=== PATIENT | male | born 1990 | race Caucasian/White ===

== ENCOUNTER 2020-09-27 13:14 | Emergency (ER) | payer SELFPAY ==
[~2020-09-27] VITALS: Ht 175.3 cm; Wt 71.0 kg
[2020-09-27] MEDS ORDERED: NALOXONE 2 MG/2 ML DISP.SYRIN. IV ONE (13:15)
[2020-09-27] MEDS ORDERED: ONDANSETRON PF 4 MG/2 ML VIAL. ONE (13:18)
[2020-09-27] MEDS ORDERED: IOHEXOL 350 MG/ML 100 ML VIAL. IV ONE (13:30)
[2020-09-27] MEDS ORDERED: IV NORMAL SALINE 1,000ML 1,000 ML IV ONE ×3 (13:30→14:30)
[2020-09-27] MEDS ORDERED: ONDANSETRON PF 4 MG/2 ML VIAL. IVP ONE ×2 (13:30)
[2020-09-27 13:37] LABS: BASO % 0 % (0-3); EOS % 0 % (0-3); HEMATOCRIT 60.6 % (39.0-53.0); HEMOGLOBIN 19.2 g/dL (13.0-17.5); LYMPH # 0.9 x10^3/uL (1.0-4.8); LYMPH % 5 % (24-48); MEAN CORPUSCULAR HEMOGLOBIN 33 pg (25-35); MEAN CORPUSCULAR HGB CONC 32 g/dL (31-37); MEAN CORPUSCULAR VOLUME 104 fL (79-100); MONO # 1.5 x10^3/uL (0.0-1.1); MONO % 8 % (0-9); NEUT # 16.5 x10^3uL (1.8-7.7); NEUT % 88 % (31-73); PLATELET COUNT 208 x10^3/uL (140-400); RED BLOOD COUNT 5.82 x10^6/uL (4.30-5.70); RED CELL DISTRIBUTION WIDTH 27.7 % (11.5-14.5); WHITE BLOOD COUNT 18.8 x10^3/uL (4.0-11.0)
--- NOTE | 2020-09-27 13:42 | PHYS DOC ---
Past History Past Medical History PMH limited secondary to altered mental status. Past Surgical History PSH limited secondary to altered mental status. Alcohol Use: Occasionally Drug Use: Opiates Social History Social history limited secondary to altered mental status. General Adult EDM: Chief Complaint: ALTERED MENTAL STATUS HPI: HPI: Patient is a 30-year-old male who presents to the ED per EMS who was found at home with altered mental status by his significant other. Last seen well when came to work last night at approximately 2330. Spouse reports patient has a known history of opioid abuse. Denies knowledge of ingestion of any illicit substance. Reports they have been under increased stress recently. She reports patient has been drinking recently but reports averages approximately 2 beers nightly. Denies known trauma. Reports she did hear him "rustle" during the night but just thought he was really tired. Patient was noted to be unresponsive for this afternoon and patient vomited which prompted spouse to call 911. EMS noted patient's O2 sat down to 84% on RA. NRB placed with interval improvement of O2 sats. EMS reports giving 1mg of Narcan in route without any improvement of symptoms. History of present illness limited secondary to altered mental status. Review of Systems: Review of Systems: Gastrointestinal: Vomiting Neurology: Altered mental status Review of system limited secondary to altered mental status. Current Medications: Current Meds: Current Medications Medications (Trade) Dose Ordered Sig/Johnny Start Time Stop Time Status Last Admin Dose Admin Iohexol (Omnipaque 350 Mg/ml) 100 ml 1X ONCE 09/27/20 13:30 09/27/20 13:31 UNV Naloxone HCl (Narcan) 2 mg STK-MED ONCE 09/27/20 13:15 09/27/20 13:16 DC Ondansetron HCl (Zofran) 4 mg 1X ONCE 09/27/20 13:30 09/27/20 13:31 UNV Sodium Chloride 1,000 ml @ 1,000 mls/hr 1X ONCE 09/27/20 13:30 09/27/20 14:29 UNV Physical Exam: PE: Constitutional: Well developed, well nourished, obtunded HENT: Normocephalic, atraumatic, gag intact Eyes: Pupils dilated and sluggish, conjunctiva normal, no discharge Neck: Normal range of motion, supple Lungs & Thorax: No respiratory distress, equal chest rise and fall, crackles noted to right lung lewis Abdomen: Soft, no tenderness, no distention Skin: Warm, dry, no erythema, no rash Extremities: No deformity, moving all extremities, no edema Neurologic: Obtunded, GCS 9 (eye 2, verbal 2, motor 5) EKG: EKG: EKG @ 1331, Sinus tachycardia at 132 bpm, no ST elevation, MA 134 ms, QRS 96 ms, QTc 436 ms Radiology/Procedures: Radiology/Procedures: PROCEDURE: CT HEAD AND CERVICAL SPINE WO CT HEAD AND CERVICAL SPINE WO Date: 09/27/2020 1:17 PM Clinical Indication: altered mental status, PT CAN NOT FOLLOW COMMANDS OR HOLD STILL / Spl. Instructions: / History: Comparison: None. Technique: 5 mm axial tomographic images were obtained of the head without contrast. These were viewed on brain and bone windows. CT imaging of the cervical spine was performed without contrast. Coronal and sagittal reformatted images were performed. One or more of the following dose reduction techniques were utilized: Automated exposure control (AEC), Adjustment of mA and/or kV according to patient size, Use of iterative reconstruction technique such as ASiR, CT scan done according to ALARA and image gently/image wisely HEAD FINDINGS: Motion artifact degrades image quality. The brain parenchyma is normal in attenuation. No intra- or extra-axial mass or fluid collection. No acute hemorrhage. The ventricles are normal in size, shape, and morphology. The hampton-white matter junction is normal. The basilar cisterns are patent. The visualized paranasal sinuses are normal. The visualized portions of the orbits and globes are normal. The mastoid air cells are clear. No aggressive osseous lesion or fracture. CERVICAL SPINE FINDINGS: Motion artifact degrades image quality. The cervical spine is normally aligned. No acute fracture. No aggressive lytic or blastic osseous lesion. The intervertebral disc heights are maintained. No high-grade spinal canal stenosis or neural foraminal narrowing. The thyroid gland is normal. No cervical lymphadenopathy. The visualized aerodigestive tract is unremarkable. The visualized lung apices are clear. IMPRESSION: 1. No acute intracranial process. 2. No convincing cervical spine fractures, allowing for motion artifact. Electronically signed by: Diego Hernadez MD (09/27/2020 2:04 PM) [id number] PROCEDURE: CT CHEST WO CONTRAST CT CHEST WO CONTRAST History: Dyspnea. Technique: Noncontrast CT of the chest was performed. Coronal and sagittal reconstructions were performed. Exposure: One or more of the following individualized dose reduction techniques were utilized for this examination: 1. Automated exposure control 2. Adjustment of the mA and/or kV according to patient size 3. Use of iterative reconstruction technique. Comparison: None Findings: Mild motion degraded examination. Chest: Mildly prominent mediastinal lymph nodes, likely reactive. Bilateral gynecomastia. Patchy right lower lobe opacity, likely atelectasis. Motion degrades evaluation of the lung bases. Secretions within the distal trachea and right mainstem bronchus. The right lower lobe mucous plugging. No pneumothorax. No pleural effusion. Upper abdomen: Focal fatty infiltration along the falciform ligament. Bones: No pathologic osseous lesions. Impression: 1. Secretions within the distal trachea and right mainstem bronchus as well as right lower lobe mucous plugging. 2. Patchy right lower lobe opacity, likely atelectasis. Electronically signed by: Tj Hubbard DO (09/27/2020 2:16 PM) [facility] Course & Med Decision Making: Course & Med Decision Making Pertinent Labs and Imaging studies reviewed. (See chart for details) Patient presents with altered mental status. Hx of prior opiate abuse. EMS gave 1mg of narcan in route without improvement. Patient also noted to be hypoxic by EMS and placed on NRB with improvement of O2 sats. Patient does respond to painful stimuli but does not awaken. Additional 2mg of Narcan provided with minimal improvement. EMS noted patient had vomited prior to arrival. Right lung lewis coarse and concerning for possible aspiration. Mouth suctioned. Protecting airway (biting on yankauer). EKG with sinus tachycardia. Labs obtained and posted to chart. SIRS criteria met with leukocytosis and tachycardia. UA nitrite positive. Lactic acid >4. IVF bolusing for sepsis given. Empiric antibiotic given. Troponin elevated. Renal function elevated. Hyperkalemia noted and addressed with calcium gluconate, insulin, and dextrose. UDS positive for benzodiazepines. CT head/cervical spine/chest without internal hemorrhage. CT chest with right main bronchus secretions consistent with concern for aspiration. Fisher catheter placed to monitor urine output. Patient with 2 large bore peripheral IVs. ASA supp provided. Troponin likely secondary to dehydration and renal insufficiency. Patient requiring admission for further evaluation and treatment. Discussed with Dr. Pierce (hospitalist) who is in agreement with admission but requests patient be transferred to [facility] to ICU secondary to need for higher level of care. Discussed findings and plan with patient, who acknowledges understanding and agreement. Bradley Disclaimer: Bradley Disclaimer: This electronic medical record was generated, in whole or in part, using a voice recognition dictation system. Departure Departure: Impression: Primary Impression: Altered mental status Qualified Codes: R41.82 - Altered mental status, unspecified Additional Impressions: Aspiration into respiratory tract Qualified Codes: T17.908A - Unspecified foreign body in respiratory tract, part unspecified causing other injury, initial encounter Septic shock Hyperkalemia Acute renal insufficiency Hypoxia Elevated troponin UTI (urinary tract infection) Qualified Codes: N30.00 - Acute cystitis without hematuria Disposition: 05 DC/TRF OTHER TYPE INSTITUTI ([facility] ICU) Admitting Physician: Robert Pierce Condition: GUARDED Referrals: PCP,NO (PCP) Critical Care Time Critical care time was 30 minutes which includes time at bedside, spent in discussion of patient's care with specialists and/or family members, with interpretation of laboratory and/or radiological studies and is exclusive of procedures. Sepsis Assessment Date and Time of Assessment Date: Sep 27, 2020 Time: 14:15 Fluid Challenge: Is the fluid challenge complet: No IBW Target Volume Used: No BMI > 30: No Vital Signs Vital Signs Vital Signs Date Time Temp Pulse Resp B/P (MAP) Pulse Ox O2 Delivery O2 Flow Rate FiO2 09/27/20 13:15 98.1 138 37 101/81 (88) 95 NonRebreather Mask 12.0 Temperature Source: Axillary Respirations Respiratory Effort: Normal Cardiovascular Pulse Rhythm: Irregular (Tachycardia) Heart: S1 and S2 normal Lung Sounds Breath Sounds: Coarse Capillary Refill Capillary Refill: Rt Hand < 3 seconds Peripheral Pulse Pulse Location: Radial Pulse Strength: Normal (2+) Pulse Assessment Method: Palpation Integumentary Skin: Warm, Dry, No Rashes Skin Moisture: Dry Skin Turgor: Normal Skin Color: warm, dry Fingernail Color: WNL BROWNBLAIRE JETT DO Sep 27, 2020 13:42
--- NOTE | 2020-09-27 13:44 | EKG ---
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
[2020-09-27 13:54] LABS: ACETAMIN < 2.0 mcg/mL (10-30); ETHANOL < 10 mg/dL (0-10); SALIC 7.2 mg/dL (2.8-20.0)
[2020-09-27 14:01] LABS: ALBUMIN 3.8 g/dL (3.4-5.0); ALBUMIN/GLOBULIN RATIO 1.1 (1.0-1.7); CALCIUM 8.5 mg/dL (8.5-10.1); CREATININE 1.6 mg/dL (0.7-1.3); GFR 50.7; MAGNESIUM 2.3 mg/dL (1.8-2.4); TOTAL PROTEIN 7.3 g/dL (6.4-8.2)
[2020-09-27 14:02] LABS: BARBITURATES NEG (NEG); BENZODIAZEPINES POS (NEG); CANNABINOIDS NEG (NEG); COCAINE NEG (NEG); METHADONE NEG (NEG); OPIATES NEG (NEG); PHENCYCLIDINE NEG (NEG)
[2020-09-27 14:05] LABS: POTASSIUM 7.2 mmol/L (3.5-5.1)
[2020-09-27 14:05] LABS: AMPHETAMINE/METHAMPHETAMINE NEG (NEG)
--- NOTE | 2020-09-27 14:07 | RAD ---
CT HEAD AND CERVICAL SPINE WO Date: 09/27/2020 1:17 PM Clinical Indication: altered mental status, PT CAN NOT FOLLOW COMMANDS OR HOLD STILL / Spl. Instructions: / History: Comparison: None. Technique: 5 mm axial tomographic images were obtained of the head without contrast. These were viewed on brain and bone windows. CT imaging of the cervical spine was performed without contrast. Coronal and sagittal reformatted images were performed. One or more of the following dose reduction techniques were utilized: Automated exposure control (AEC), Adjustment of mA and/or kV according to patient size, Use of iterative reconstruction technique such as ASiR, CT scan done according to ALARA and image gently/image wisely HEAD FINDINGS: Motion artifact degrades image quality. The brain parenchyma is normal in attenuation. No intra- or extra-axial mass or fluid collection. No acute hemorrhage. The ventricles are normal in size, shape, and morphology. The hampton-white matter junction is normal. The basilar cisterns are patent. The visualized paranasal sinuses are normal. The visualized portions of the orbits and globes are normal. The mastoid air cells are clear. No aggressive osseous lesion or fracture. CERVICAL SPINE FINDINGS: Motion artifact degrades image quality. The cervical spine is normally aligned. No acute fracture. No aggressive lytic or blastic osseous lesion. The intervertebral disc heights are maintained. No high-grade spinal canal stenosis or neural foraminal narrowing. The thyroid gland is normal. No cervical lymphadenopathy. The visualized aerodigestive tract is unremarkable. The visualized lung apices are clear. IMPRESSION: 1. No acute intracranial process. 2. No convincing cervical spine fractures, allowing for motion artifact. Electronically signed by: Diego Hernadez MD (09/27/2020 2:04 PM) [id number]
[2020-09-27] MEDS ORDERED: PIPERACILLIN/TAZOBACTAM 4.5 GM in IV NORMAL SALINE 50ML 50 ML IV ONE (14:15)
[2020-09-27] MEDS ORDERED: INSULIN REGULAR 100 UNIT/ML 3ML VIAL. IV ONE (14:15)
[2020-09-27] MEDS ORDERED: DEXTROSE 50% 25 GM / 50ML DISP.SYRIN. IV ONE (14:15)
[2020-09-27] MEDS ORDERED: CALCIUM GLUCONATE 1,000 MG/10 ML VIAL IV ONE (14:15)
[2020-09-27 14:16] LABS: BILIRUBIN,URINE SMALL (NEG); CLARITY,URINE CLOUDY; COLOR,URINE AMBER; GLUCOSE,URINE NEG (NEG)
[2020-09-27 14:17] LABS: AMORPHOUS SEDIMENT,UR PRESENT /HPF; BACTERIA,URINE 0 /HPF (0-FEW); NITRITE,URINE POS (NEG); RBC,URINE 0 /HPF (0-2); SQUAMOUS EPITHELIAL CELL,UR MOD /LPF; WBC,URINE 0 /HPF (0-4)
--- NOTE | 2020-09-27 14:20 | RAD ---
CT CHEST WO CONTRAST History: Dyspnea. Technique: Noncontrast CT of the chest was performed. Coronal and sagittal reconstructions were performed. Exposure: One or more of the following individualized dose reduction techniques were utilized for this examination: 1. Automated exposure control 2. Adjustment of the mA and/or kV according to patient size 3. Use of iterative reconstruction technique. Comparison: None Findings: Mild motion degraded examination. Chest: Mildly prominent mediastinal lymph nodes, likely reactive. Bilateral gynecomastia. Patchy right lower lobe opacity, likely atelectasis. Motion degrades evaluation of the lung bases. Secretions within the distal trachea and right mainstem bronchus. The right lower lobe mucous plugging. No pneumothorax. No pleural effusion. Upper abdomen: Focal fatty infiltration along the falciform ligament. Bones: No pathologic osseous lesions. Impression: 1. Secretions within the distal trachea and right mainstem bronchus as well as right lower lobe mucous plugging. 2. Patchy right lower lobe opacity, likely atelectasis. Electronically signed by: Tj Hubbard DO (09/27/2020 2:16 PM) [facility]
[2020-09-27] MEDS ORDERED: CONTRAST GIVEN. MC PRN (14:45)
[2020-09-27] MEDS ORDERED: IV NORMAL SALINE 50ML 50 ML ONE (14:47)
[2020-09-27] MEDS ORDERED: PIPERACILLIN/TAZOBACTAM 4.5 GM VIAL IV ONE (14:47)
[2020-09-27 15:26] LABS: % BANDS 1 % (0-9); % LYMPHS 3 % (24-48); % MONOS 7 % (0-10); % SEGS 89 % (35-66)
[2020-09-27 15:27] LABS: ANISOCYTOSIS MOD; PLT ESTIMATE ADEQUATE (ADEQUATE)
[2020-09-27] MEDS ORDERED: ASPIRIN RECTAL 300 MG SUPP. PR ONE (17:15)
[2020-09-27 18:30] VITALS: BP 130/111
== END 2020-09-27 19:52 | disposition short-term general hospital (02) ==
LOC: ER 13:14
DX: T17.908A Unspecified foreign body in respiratory tract, part unspecified causing other injury, initial encounter (principal); R65.21 Severe sepsis with septic shock; N17.9 Acute kidney failure, unspecified; R41.82 Altered mental status, unspecified; E87.5 Hyperkalemia; R09.02 Hypoxemia; R77.8 Other specified abnormalities of plasma proteins; N30.00 Acute cystitis without hematuria; X58.XXXA Exposure to other specified factors, initial encounter; Y93.89 Activity, other specified; Y92.89 Other specified places as the place of occurrence of the external cause; Y99.8 Other external cause status
CPT/HCPCS: 36415; 51702; 70450; 71250; 72125; 80053; 80307; 80329; 81001; 82553; 82947; 83605; 83735; 84484; 85007; 85025; 85610; 85730; 87040; 87086; 93005; 96360; 96361; 96365; 96366; 96375; 96376; 99291; G0480; J0610; J1815; J2405; J2543; J7030

== ENCOUNTER → 2022-04-06 | Outpatient (CLI) | payer SELFPAY ==
--- NOTE | 2022-04-06 09:26 | RAD ---
PA chest and right rib series: Reason for examination: Right lateral rib pain for one day. No known injury. Heart size is normal. Mediastinum is unremarkable. Lung lewis are clear. There are postop changes in the thoracolumbar spine with rods and pedicle screws present. No acute bony abnormalities are eviden t. 4 views of the right ribs show no evidence of fractures. No lytic or blastic bone lesions are evident . IMPRESSION: No acute cardiopulmonary disease. No focal right rib abnormalities evident. Electronically signed by: Makayla Tomlin MD (04/06/2022 9:24 AM) [facility]AN
== END ==
LOC: PMG 08:34
PROVIDERS: ATTEND Nurse Practitioner Family
DX: R07.81 Pleurodynia (principal); Z98.890 Other specified postprocedural states
CPT/HCPCS: 71101